=== PATIENT | female | born 1955 | race Caucasian/White ===

== ENCOUNTER 2017-07-04 15:04 | Emergency (ER) | payer BC, OTHER ==
[2017-07-04] MEDS ORDERED: Bacitracin/Neomycin/Polymyxin B Oint 0.9 GM U/D Packet TOP ONE (15:17)
--- NOTE | 2017-07-04 15:24 | EDM.PDOC ---
ED HPI GENERAL MEDICAL PROBLEM - General Chief Complaint: General Stated Complaint: Pinky Laceration Time Seen by Provider: 07/04/17 15:13 Source of Information: Reports: Patient History Limitations: Reports: No Limitations - History of Present Illness INITIAL COMMENTS - FREE TEXT/NARRATIVE: Patient is a 61-year-old who works at [employer] was using the voice when the chain broke caught her in the right fifth finger causing a laceration at this time we' ll take her to x-rays on the right Onset: Today Duration: Minutes:, Getting Worse, Recurring Location: Reports: Upper Extremity, Right (Right fifth finger) Quality: Reports: Ache Severity: Mild Improves with: Reports: None Worsens with: Reports: None Right 5-Little finger Pain Score (Numeric/FACES): 9 - Related Data Allergies Allergy/AdvReac Type Severity Reaction Status Date / Time codeine Allergy Nausea and Verified 07/04/17 15:05 Vomiting ibuprofen Allergy HYPERSENSIT Verified 07/04/17 15:05 IVITY latex Allergy Redness Verified 07/04/17 15:05 lisinopril Allergy Cough Verified 07/04/17 15:05 Sulfa (Sulfonamide Allergy Cannot Verified 07/04/17 15:05 Antibiotics) Remember venlafaxine Allergy Headache Verified 07/04/17 15:05 Home Meds: Home Meds Hydrochlorothiazide 25 mg PO DAILY 11/02/13 [History] Levothyroxine Sodium [Synthroid] 50 mcg PO DAILY 11/02/13 [History] Losartan [Cozaar] 25 mg PO DAILY 11/02/13 [History] Omeprazole 20 mg PO BID 11/02/13 [History] Pramipexole [Mirapex] 1 mg PO BEDTIME 11/02/13 [History] Simvastatin [Zocor] 10 mg PO DAILY 11/02/13 [History] Hypromellose [GenTeal Mild to Moderate Ophth Soln] 25 ml EYEBOTH QID 11/30/15 [ History] Loratadine [Claritin] 10 mg PO DAILY 11/30/15 [History] Sertraline HCl [Zoloft] 50 mg PO DAILY 07/04/17 [History] metFORMIN [Glucophage XR] 500 mg PO BID 07/04/17 [History] Past Medical History HEENT History: Reports: Impaired Vision, Other (See Below) Other HEENT History: Dry eyes, glasses Cardiovascular History: Reports: High Cholesterol, Hypertension Respiratory History: Reports: Sleep Apnea Gastrointestinal History: Reports: GERD [employer] History: Reports: Dysfunctional Uterine Bleeding Musculoskeletal History: Reports: Arthritis Neurological History: Reports: Headaches, Chronic Psychiatric History: Reports: Depression Endocrine/Metabolic History: Reports: Diabetes, Type II, Hyperthyroidism Dermatologic History: Reports: Other (See Below) Other Dermatologic History: Dry skin - Past Surgical History GI Surgical History: Reports: Appendectomy, Bariatric Procedure Musculoskeletal Surgical History: Reports: Carpal Tunnel Oncologic Surgical History: Reports: Biopsy of Breast Social & Family History - Tobacco Use Smoking Status *Q: Never Smoker Second Hand Smoke Exposure: No - Alcohol Use Days Per Week of Alcohol Use: 0 - Recreational Drug Use Recreational Drug Use: No Drug Use in Last 12 Months: No ED ROS GENERAL - Review of Systems Review Of Systems: See Below Constitutional: Reports: No Symptoms HEENT: Reports: No Symptoms Respiratory: Reports: No Symptoms Cardiovascular: Reports: No Symptoms Endocrine: Reports: No Symptoms GI/Abdominal: Reports: No Symptoms Musculoskeletal: Reports: Other (Right fifth finger pain and laceration) Skin: Reports: Other (Right fifth finger pain and laceration) Neurological: Reports: No Symptoms ED EXAM, GENERAL - Physical Exam Exam: See Below Exam Limited By: No Limitations General Appearance: Alert, WD/WN, No Apparent Distress Ears: Normal External Exam, Normal Canal, Hearing Grossly Normal, Normal TMs Nose: Normal Inspection, Normal Mucosa, No Blood Throat/Mouth: Normal Inspection, Normal Lips, Normal Teeth, Normal Gums, Normal Oropharynx, Normal Voice, No Airway Compromise Head: Atraumatic, Normocephalic Neck: Normal Inspection, Supple, Non-Tender, Full Range of Motion Respiratory/Chest: No Respiratory Distress Cardiovascular: Normal Peripheral Pulses, Regular Rate, Rhythm, No Edema, No Gallop, No JVD, No Murmur, No Rub GI/Abdominal: Normal Bowel Sounds, Soft, Non-Tender, No Organomegaly, No Distention, No Abnormal Bruit, No Mass Rectal (Female) Exam: Deferred Back Exam: Normal Inspection, Full Range of Motion, NT Extremities: Other (Right finger pain and laceration) ED GENERAL MEDICAL PROCEDURES - Laceration/Wound Repair Right Lower Lateral Distal Finger Lac/wound length in cm: 1 Appearance: Superficial, Clean Distal NVT: Neuro & Vascular Intact, No Tendon Injury Anesthetic Type: Local Local Anesthesia - Lidocaine (Xylocaine): 1% Plain Local Anesthetic Volume: 1cc Skin Prep: Chlorhexidine (Hibiciens), Sterile Drape Exploration/Debridement/Repair: In a Bloodless Field, Minimal Debridement Closed with: Sutures Suture Size: 4-0 Suture Type: Nylon, Interrupted Progress/Comments: Patient is a 61-year-old at this time she has a laceration over her right fifth finger medially at this time we x-ray today revealed possible fracture of the proximal third of the distal phalanx is a clean fracture patient states that the which broke and that Lauro Hayter on the finger at this time the wound appeared to be superficial and clean we went ahead and cleaned the wound and decided to close it with 5-0 nylon 3 stitches and then we splinted the finger after the finger no laceration was fixed I would like to see her in a week's time for suture removal Course - Vital Signs Last Recorded V/S: Last Vital Signs Temp 98.1 F 07/04/17 15:05 Pulse 64 07/04/17 15:05 Resp 16 07/04/17 15:05 BP 136/62 07/04/17 15:05 Pulse Ox 97 07/04/17 15:05 - Orders/Labs/Meds Orders: Active Orders 24 hr Category Date Time Status Fingers Fifth Digit Rt F9 [CR] Stat Exams 07/04/17 15:15 Taken Meds: Medications Discontinued Medications Generic Name Dose Route Start Last Admin Trade Name Freq PRN Reason Stop Dose Admin Lidocaine HCl 5 ml 07/04/17 15:17 Xylocaine-Mpf 1% INJECT 07/04/17 15:18 ONETIME ONE Neomycin/Polymyxin/Bacitracin 1 each 07/04/17 15:17 Triple Antibiotic Oint TOP 07/04/17 15:18 ONETIME ONE Departure - Departure Time of Disposition: 16:00 Disposition: Home, Self-Care 01 Clinical Impression: Laceration of finger, right Qualifiers: Encounter type: initial encounter Finger: little finger Damage to nail status: without damage Foreign body presence: without foreign body Qualified Code(s): S61.216A - Laceration without foreign body of right little finger without damage to nail, initial encounter - Discharge Information Referrals: Geovanni Rojas [employer] [Primary Care Provider] - Forms: ED Department Discharge - My Orders Last 24 Hours: My Active Orders 07/04/17 15:15 Fingers Fifth Digit Rt F9 [CR] Stat - Assessment/Plan Last 24 Hours: My Active Orders 07/04/17 15:15 Fingers Fifth Digit Rt F9 [CR] Stat
[2017-07-04 15:40] VITALS: BP 136/62
== END 2017-07-04 16:20 | disposition home or self-care (01) ==
LOC: LL.ED 15:04
DX: S61.216A Laceration without foreign body of right little finger without damage to nail, initial encounter (principal); I10 Essential (primary) hypertension; E78.00 Pure hypercholesterolemia, unspecified; G47.30 Sleep apnea, unspecified; K21.9 Gastro-esophageal reflux disease without esophagitis; M19.90 Unspecified osteoarthritis, unspecified site; E11.9 Type 2 diabetes mellitus without complications; F32.9 Major depressive disorder, single episode, unspecified; E05.90 Thyrotoxicosis, unspecified without thyrotoxic crisis or storm; Z90.49 Acquired absence of other specified parts of digestive tract; Z98.84 Bariatric surgery status; Z98.890 Other specified postprocedural states; Z79.84 Long term (current) use of oral hypoglycemic drugs; Z79.899 Other long term (current) drug therapy; Z88.2 Allergy status to sulfonamides; Z88.8 Allergy status to other drugs, medicaments and biological substances; Z88.5 Allergy status to narcotic agent; Z88.6 Allergy status to analgesic agent; Z91.040 Latex allergy status; W45.8XXA Other foreign body or object entering through skin, initial encounter; Y99.0 Civilian activity done for income or pay
CPT/HCPCS: 12001; 73140; 99283; L3999

== ENCOUNTER 2020-07-15 07:46 | Day surgery (SDC) | payer BC ==
[2020-07-15] MEDS ORDERED: Lactated Ringers 1,000 ML IV SCH (08:00)
[2020-07-15] MEDS ORDERED: Sodium Chloride 0.9% 10 ML Syringe FLUSH PRN (08:00)
[2020-07-15] MEDS ORDERED: Propofol 200 MG/20 ML SDV ONE ×2 (08:06→09:12)
--- NOTE | 2020-07-15 09:16 | PCM.HPR ---
H & P Addendum review - H & P Addendum Review Date of Original H & P: 07/02/20 Date Reviewed: 07/15/20 Time Reviewed: 09:05 Patient was Examined: No Changes
--- NOTE | 2020-07-15 09:55 | PCM.OPNOTE ---
- General Post-Op/Procedure Note Date of Surgery/Procedure: 07/15/20 Operative Procedure(s): Colonoscopy Findings: Sig tics Pre Op Diagnosis: FH Colon Ca Post-Op Diagnosis: Same Anesthesia Technique: MAC Primary Surgeon: Melchor Vazquez Complications: None Condition: Good
[2020-07-15 10:09] VITALS: PULSE 57
--- NOTE | 2020-07-15 10:46 | OR ---
Date of Procedure: 07/15/2020 PREOPERATIVE DIAGNOSIS: Family history of colon cancer in father. POSTOPERATIVE DIAGNOSIS: Sigmoid diverticulosis. PROCEDURE: Colonoscopy. ANESTHESIA: IV sedation. PROCEDURE IN DETAIL: The patient was brought to the procedure room where she was placed on her left side and IV sedation administered. Digital rectal exam was performed, which was normal. Colonoscope was inserted and advanced to the level of the cecum with difficulty getting through a tortuous sigmoid colon with looping of the scope. This required pressure on the abdomen and changing to the supine position. Cecum was confirmed by identifying the appendiceal lumen and ileocecal valve. This was photographed. The prep was good and surfaces were well visualized. Upon withdrawing the scope, the ascending, transverse, and descending colon were normal in appearance. Sigmoid colon was tortuous with multiple diverticula present. Rectum was normal and retroflexion was normal. Air was removed and the scope withdrawn. Patient tolerated the procedure well and returned to recovery in stable condition. Recommend routine colon screening again in 5 years. BRIAN AGUILAR MD /[id number]
[2020-07-15 11:02] VITALS: BP 156/67
== END 2020-07-15 10:45 | disposition home or self-care (01) ==
LOC: LL.SDS 07:46
PROVIDERS: ATTEND Surgery
DX: Z12.11 Encounter for screening for malignant neoplasm of colon (principal); K57.30 Diverticulosis of large intestine without perforation or abscess without bleeding; I10 Essential (primary) hypertension; E11.9 Type 2 diabetes mellitus without complications; K21.9 Gastro-esophageal reflux disease without esophagitis; F32.9 Major depressive disorder, single episode, unspecified; E03.9 Hypothyroidism, unspecified; G47.33 Obstructive sleep apnea (adult) (pediatric); E66.01 Morbid (severe) obesity due to excess calories; Z80.0 Family history of malignant neoplasm of digestive organs; Z98.84 Bariatric surgery status; Z79.899 Other long term (current) drug therapy; Z79.890 Hormone replacement therapy; Z79.84 Long term (current) use of oral hypoglycemic drugs; Z88.2 Allergy status to sulfonamides; Z88.5 Allergy status to narcotic agent; Z88.8 Allergy status to other drugs, medicaments and biological substances; Z91.040 Latex allergy status; Z68.36 Body mass index [BMI] 36.0-36.9, adult; Z11.59 Encounter for screening for other viral diseases
CPT/HCPCS: 45378; 82962; 87635; J2704; J7120; 00812; U0002

== ENCOUNTER 2025-07-23 09:06 | Day surgery (SDC) | payer MEDICARE, MEDICAID ==
[~2025-07-23 09:06] MED LIST: Midazolam 1 MG/ML 2 ML SDV ONE; Propofol 200 MG/20 ML SDV ONE; Sodium Chloride 0.9% 10 ML Syringe FLUSH PRN
[2025-07-23] MEDS: Lactated Ringers 1,000 ML IV SCH (09:24)
[2025-07-23 11:42] VITALS: BP 135/64; PULSE 62
== END 2025-07-23 11:52 | disposition home or self-care (01) ==
LOC: LL.SDS 09:06
PROVIDERS: ATTEND Surgery
DX: Z12.11 Encounter for screening for malignant neoplasm of colon (principal); K20.90 Esophagitis, unspecified without bleeding; I10 Essential (primary) hypertension; E11.9 Type 2 diabetes mellitus without complications; E03.9 Hypothyroidism, unspecified; E66.9 Obesity, unspecified; Z80.0 Family history of malignant neoplasm of digestive organs; Z98.0 Intestinal bypass and anastomosis status; Z88.5 Allergy status to narcotic agent; Z88.8 Allergy status to other drugs, medicaments and biological substances; Z88.2 Allergy status to sulfonamides; Z79.4 Long term (current) use of insulin; Z91.040 Latex allergy status; Z79.899 Other long term (current) drug therapy; Z86.0100 Personal history of colon polyps, unspecified; Z79.890 Hormone replacement therapy; Z68.35 Body mass index [BMI] 35.0-35.9, adult
CPT/HCPCS: 00813; 43239; G0121; J1596; J2250; J2704; J7120